=== PATIENT | male | born 1960 | race Caucasian/White ===

== ENCOUNTER → 2020-07-09 07:47 | Outpatient (CLI) | payer BC, SELFPAY ==
--- NOTE | ~2020-07-09 | XR_ITS ---
EXAMINATION: XR hand LT 2V EXAM DATE: 07/09/2020 08:30 INDICATION: No known recent injury provided at this time. Pain of the left hand. TECHNIQUE: Frontal and lateral projections of the left hand. Correlation is made to contralateral peralta nd same date. FINDINGS: There are some small erosive changes at the articular surface of the left 3rd metacarpopha langeal joint, appearance consistent with subchondral cyst formation from mild to moderate primary os teoarthritis. No periarticular erosions. There are no acute fractures or dislocations identified. Th ere is no subcutaneous gas. The soft tissue is unremarkable. There are no radiopaque foreign santhosh s. IMPRESSION: Left 3rd MCP mild to moderate, otherwise mild polyarticular osteoarthritis. Reviewed, dictated and finalized at location B. IMPRESSION: Left 3rd MCP mild to moderate, otherwise mild polyarticular osteoar thritis.
--- NOTE | ~2020-07-09 | XR_ITS ---
EXAMINATION: XR chest 2V EXAM DATE: 07/09/2020 08:30 INDICATION: Elevated rheumatoid factor. Polyarthralgia. TECHNIQUE: Frontal and lateral projections of the chest obtained and reviewed. There is no prior ashley dy for comparison. FINDINGS: There is a dual lead pacemaker/AICD seen with leads projecting over the expected locations of the right atrial appendage and right ventricle. The lungs are clear. There are no pleural effusi ons. Cardiac silhouette is prominent but magnified on this AP technique. There is no pneumothorax suspected. The bones and soft tissues are unremarkable. IMPRESSION: No acute cardiopulmonary findings. Reviewed, dictated and finalized at location B.
--- NOTE | ~2020-07-09 | XR_ITS ---
EXAMINATION: XR foot LT min 3V EXAM DATE: 07/09/2020 08:30 INDICATION: No known recent injury provided at this time. Pain of the left foot. Rheumatoid factor. TECHNIQUE: Left foot dorsoplantar, lateral and oblique projections obtained and reviewed. There is n o prior study for comparison. FINDINGS: Left metatarsal bones unremarkable. There is moderate 1st metatarsophalangeal primary ost eoarthritis. There are no acute fractures or dislocations identified. There is no subcutaneous gas. The soft tissue is unremarkable. There are no radiopaque foreign bodies. There are no bony erosio ns identified. IMPRESSION: Moderate left 1st MTP osteoarthritis. Reviewed, dictated and finalized at location B.
--- NOTE | ~2020-07-09 | XR_ITS ---
EXAMINATION: XR hand RT 2V EXAM DATE: 07/09/2020 08:30 INDICATION: No known recent injury provided at this time. Pain of the right hand. Polyarthralgia. Rh eumatoid factor. TECHNIQUE: Frontal and lateral projections of the right hand. Correlation is made to contralateral h and same date. FINDINGS: There are no bony erosions identified. There is mild polyarticular right hand primary oste oarthritis. There are no acute fractures or dislocations identified. There is no subcutaneous gas. The soft tissue is unremarkable. There are no radiopaque foreign bodies. IMPRESSION: 1. Mild polyarticular right hand osteoarthritis. 2. No erosions. Reviewed, dictated and finalized at location B.
--- NOTE | ~2020-07-09 | XR_ITS ---
EXAMINATION: XR foot RT min 3V EXAM DATE: 07/09/2020 08:30 INDICATION: No known recent injury provided at this time. Pain of the right foot. Great toe pain, bi lateral foot injuries in the past. TECHNIQUE: Right foot dorsoplantar, lateral and oblique projections obtained and reviewed. There is no prior study for comparison. FINDINGS: Right metatarsal bones unremarkable. There is mild 1st interphalangeal and metatarsophalan geal primary osteoarthritis. There are no bony erosions identified. There are no acute fractures or dislocations identified. There is no subcutaneous gas. The soft tissue is unremarkable. There are no radiopaque foreign bodies. IMPRESSION: Mild 1st digit osteoarthritis. Reviewed, dictated and finalized at location B.
== END ==
PROVIDERS: PCP Family Medicine Sports Medicine; Visit Provider Physician Assistant
DX: R76.8 Other specified abnormal immunological findings in serum (principal); M19.071 Primary osteoarthritis, right ankle and foot; M19.072 Primary osteoarthritis, left ankle and foot; M19.041 Primary osteoarthritis, right hand; M19.042 Primary osteoarthritis, left hand
CPT/HCPCS: 71046; 73120; 73630